=== PATIENT | male | born 1960 | race Caucasian/White ===

== ENCOUNTER 2021-01-04 08:55 | Outpatient (REF) | payer OTHER, SELFPAY ==
[2021-01-04 09:44] LABS: MANUAL DIFF FLAG NO
[2021-01-04 09:57] LABS: Basophils Percent Auto 0.7 % (0-2); Eosinophils Absolute Auto 0.4 X10*3/uL (0.0-0.4); Eosinophils Percent Auto 6.1 % (0-4); Hemoglobin 15.6 g/dl (14.0-18.0); Imm Gran Abs Auto 0.01 X10*3/uL (0.00-0.03); Imm Gran Pct Auto 0.2 % (0.0-0.4); Lymphocytes Absolute Auto 1.7 X10*3/uL (1.2-4.9); Lymphocytes Percent Auto 28.8 % (20-40); Mean Corpuscular HGB Conc 33.9 g/dl (31.0-36.0); Mean Corpuscular Hemoglobin 29.9 pg (27.0-33.0); Mean Corpuscular Volume 88.3 fL (80-98); Monocytes Absolute Auto 0.5 X10*3/uL (0.1-1.2); Monocytes Percent Auto 8.4 % (2-11); Neutrophils Absolute Auto 3.2 X10*3/uL (2.0-8.3); Neutrophils Percent Auto 55.8 % (45-73); Platelet Count 215 X10*3/uL (160-400); Red Blood Count 5.21 X10*6/uL (4.60-5.80); Red Cell Distribution Width 13.4 % (11.0-16.0); White Blood Count 5.7 X10*3/uL (4.8-10.8)
[2021-01-04 10:21] LABS: Alanine Aminotransferase 33 U/L (0-40); Albumin Level 4.1 g/dL (3.5-5.0); Alkaline Phosphatase 79 U/L (39-117); Anion Gap 11 (12-20); Aspartate Amino Transferase 20 U/L (5-37); Bilirubin Total 0.5 mg/dL (0.0-1.0); Blood Urea Nitrogen 12 mg/dL (9-16); Calcium 9.3 mg/dL (8.4-10.2); Carbon Dioxide 28 mmol/L (22-29); Chloride 104 mmol/L (96-108); Estimated Glomerular Filt Rate > 60; Glucose Random 160 mg/dL (60-115); Potassium 4.4 mmol/L (3.3-5.1); Sodium 139 mmol/L (135-145); Total Protein 7.2 g/dL (6.5-8.0)
[2021-01-04 10:25] LABS: TSH reflex Free T4 33.75 uIU/mL (0.32-4.0)
[2021-01-04 10:51] LABS: SARS COV2 IgG Negative (Negative)
[2021-01-04 10:58] LABS: Free T4 (Free Thyroxine) 0.71 ng/dL (0.71-1.85)
[2021-01-09 20:45] LABS: Testosterone, Free 50.5 pg/mL (35.0-155.0); Testosterone, Total 234 ng/dL (250-1100)
== END 2021-01-04 08:56 | disposition home or self-care (01) ==
LOC: HO.LAB 08:55
PROVIDERS: PCP Family Medicine; Visit Provider Family Medicine
DX: Z00.00 Encounter for general adult medical examination without abnormal findings (principal); Z20.822 Contact with and (suspected) exposure to COVID-19; R53.83 Other fatigue
CPT/HCPCS: 36415; 80053; 84402; 84403; 84439; 84443; 85025; 86769

== ENCOUNTER 2021-02-09 09:53 | Outpatient (REF) | payer OTHER, SELFPAY ==
[2021-02-09 11:57] LABS: TSH reflex Free T4 4.49 uIU/mL (0.32-4.0)
[2021-02-09 12:37] LABS: Free T4 (Free Thyroxine) 0.95 ng/dL (0.71-1.85)
== END 2021-02-09 09:54 | disposition home or self-care (01) ==
LOC: HO.LAB 09:53
PROVIDERS: PCP Family Medicine; Visit Provider Family Medicine
DX: E03.9 Hypothyroidism, unspecified (principal)
CPT/HCPCS: 36415; 84439; 84443

== ENCOUNTER 2021-03-23 09:19 | Outpatient (REF) | payer OTHER, SELFPAY ==
[2021-03-23 10:48] LABS: Appearance Urine CLEAR; Color Urine YELLOW; Glucose Urine UA NEG (NEG); Leukocyte Esterase Urine NEG (NEG); Nitrite Urine NEG (NEG); Specific Gravity - Urine 1.025 (1.005-1.025); Urine Blood NEG (NEG); Urine Ketones NEG (NEG); Urine Protein NEG (NEG-TRACE)
[2021-03-23 11:03] LABS: Alanine Aminotransferase 32 U/L (0-40); Albumin Level 4.1 g/dL (3.5-5.0); Alkaline Phosphatase 81 U/L (39-117); Anion Gap 11 (12-20); Aspartate Amino Transferase 21 U/L (5-37); Bilirubin Total 0.8 mg/dL (0.0-1.0); Blood Urea Nitrogen 13 mg/dL (9-16); Calcium 9.5 mg/dL (8.4-10.2); Carbon Dioxide 27 mmol/L (22-29); Chloride 106 mmol/L (96-108); Estimated Glomerular Filt Rate > 60; Glucose Fasting 171 mg/dL (60-99); Potassium 4.6 mmol/L (3.3-5.1); Sodium 139 mmol/L (135-145); Total Protein 7.1 g/dL (6.5-8.0)
[2021-03-23 11:25] LABS: Free T4 (Free Thyroxine) 0.87 ng/dL (0.71-1.85); Thyroid Stimulating Hormone 3.55 uIU/mL (0.32-4.0)
[2021-03-25 04:12] LABS: Triiodothyronine T3 Total 112 ng/dL (76-181)
== END 2021-03-23 09:20 | disposition home or self-care (01) ==
LOC: HO.LAB 09:19
PROVIDERS: PCP Family Medicine; Visit Provider Family Medicine
DX: Z00.00 Encounter for general adult medical examination without abnormal findings (principal); E03.9 Hypothyroidism, unspecified
CPT/HCPCS: 36415; 80053; 81003; 84439; 84443; 84480

== ENCOUNTER 2021-05-14 08:51 | Outpatient (REF) | payer OTHER, SELFPAY ==
[2021-05-14 09:53] LABS: Alanine Aminotransferase 32 U/L (0-40); Albumin Level 3.9 g/dL (3.5-5.0); Alkaline Phosphatase 86 U/L (39-117); Anion Gap 12 (12-20); Aspartate Amino Transferase 18 U/L (5-37); Bilirubin Total 0.7 mg/dL (0.0-1.0); Blood Urea Nitrogen 14 mg/dL (9-16); Calcium 9.2 mg/dL (8.4-10.2); Carbon Dioxide 27 mmol/L (22-29); Chloride 104 mmol/L (96-108); Estimated Average Glucose 180 mg/dL; Estimated Glomerular Filt Rate > 60; Glucose Fasting 184 mg/dL (60-99); Hemoglobin A1c % 7.9 %; Potassium 4.5 mmol/L (3.3-5.1); Sodium 138 mmol/L (135-145); Total Protein 6.9 g/dL (6.5-8.0)
[2021-05-14 10:15] LABS: Appearance Urine HAZY; Color Urine YELLOW; Glucose Urine UA 100 MG/DL (NEG); Leukocyte Esterase Urine NEG (NEG); Nitrite Urine NEG (NEG); PH 5.5 (5.0-8.0); Specific Gravity - Urine >= 1.030 (1.005-1.025); Urine Blood NEG (NEG); Urine Ketones NEG (NEG); Urine Protein NEG (NEG-TRACE)
[2021-05-14 10:16] LABS: TSH reflex Free T4 0.35 uIU/mL (0.32-4.0)
== END 2021-05-14 08:52 | disposition home or self-care (01) ==
LOC: HO.LAB 08:51
PROVIDERS: PCP Family Medicine; Visit Provider Family Medicine
DX: Z00.00 Encounter for general adult medical examination without abnormal findings (principal); E03.9 Hypothyroidism, unspecified; R73.01 Impaired fasting glucose
CPT/HCPCS: 36415; 80053; 81003; 83036; 84443

== ENCOUNTER → 2021-05-18 08:05 | Outpatient (BNVA) | payer OTHER, SELFPAY | PROVIDERS: PCP Family Medicine; Referring Provider Family Medicine; Visit Provider Nurse Practitioner Family | DX: G47.19 Other hypersomnia (principal); G47.9 Sleep disorder, unspecified; R06.83 Snoring | CPT/HCPCS: 99202 ==

== ENCOUNTER 2021-10-14 13:57 | Outpatient (REF) | payer OTHER, SELFPAY ==
[2021-10-14 14:43] LABS: Influenza A PCR NEGATIVE (Negative); Influenza B PCR NEGATIVE (Negative); Resp Syncy Virus RNA Qual PCR NEGATIVE (Negative); SARS COV2 PCR INHOUSE NEGATIVE (Negative)
== END 2021-10-14 13:58 | disposition home or self-care (01) ==
LOC: HO.LNP 13:57
PROVIDERS: Visit Provider Family Medicine
DX: Z20.822 Contact with and (suspected) exposure to COVID-19 (principal); R09.89 Other specified symptoms and signs involving the circulatory and respiratory systems
CPT/HCPCS: 0241U

== ENCOUNTER 2022-08-16 10:32 | Outpatient (REF) | payer OTHER, SELFPAY ==
[2022-08-16 14:07] LABS: Appearance Urine Clear; Color Urine Yellow; Glucose Urine UA Negative (Negative); Leukocyte Esterase Urine Negative (Negative); Nitrite Urine Negative (Negative); Urine Blood Negative (Negative); Urine Ketones Negative (Negative); Urine Protein Negative (Neg-Trace)
[2022-08-16 14:29] LABS: Estimated Average Glucose 151 mg/dL; Hemoglobin A1c % 6.9 %
[2022-08-16 14:53] LABS: Alanine Aminotransferase 23 U/L (0-40); Albumin Level 4.2 g/dL (3.5-5.0); Alkaline Phosphatase 94 U/L (39-117); Anion Gap 15 (12-20); Aspartate Amino Transferase 16 U/L (5-37); Bilirubin Total 0.8 mg/dL (0.0-1.0); Blood Urea Nitrogen 15 mg/dL (9-16); Calcium 9.3 mg/dL (8.4-10.2); Carbon Dioxide 26 mmol/L (22-29); Chloride 104 mmol/L (96-108); Cholesterol 244 mg/dL; Estimated Glomerular Filt Rate > 60; Glucose Fasting 136 mg/dL (60-99); HDL Cholesterol 59 mg/dL; LDL Cholesterol Calculated 160 mg/dl; Potassium 4.5 mmol/L (3.3-5.1); Sodium 140 mmol/L (135-145); Total Protein 7.2 g/dL (6.5-8.0); Triglycerides 129 mg/dL
[2022-08-16 14:58] LABS: Creatinine Urine 131.17 mg/dL; Microalbum/Creatinine Ratio Ur 5.3 ug/mg cr
[2022-08-16 15:01] LABS: Free T4 (Free Thyroxine) 0.84 ng/dL (0.71-1.85); Prostate Specific Antigen Scr 0.72 ng/mL (<0.05-4.0); Thyroid Stimulating Hormone 3.59 uIU/mL (0.32-4.0)
[2022-08-18 11:54] LABS: Triiodothyronine T3 Total 115 ng/dL (76-181)
== END 2022-08-16 10:33 | disposition home or self-care (01) ==
LOC: HO.WFDLDS 10:32
PROVIDERS: Visit Provider Family Medicine
DX: Z00.00 Encounter for general adult medical examination without abnormal findings (principal); E03.9 Hypothyroidism, unspecified; I10 Essential (primary) hypertension; R73.01 Impaired fasting glucose; Z12.5 Encounter for screening for malignant neoplasm of prostate
CPT/HCPCS: 36415; 80053; 80061; 81003; 82043; 83036; 84153; 84439; 84443; 84480

== ENCOUNTER 2023-07-14 13:32 | Outpatient (AMB) | payer OTHER, SELFPAY ==
--- NOTE | 2023-07-14 13:38 | A.OFFPC_ITS ---
Vital Signs 07/14/23 13:39 Height 5 ft 9 in Weight 210 lb BMI 31.0 BP 128/76 Blood Pressure Location Lt brachial Position Sitting Pulse 67 Pulse Source Pulse Oximeter Pulse Oximetry (%) 97 Oxygen Delivery Method Room Air Intake Visit Reasons: f/u hypercholesterolemia and diabetes Intake Note: Patient is here to follow up on hypercholesterolemia and diabetes. Patient is concerned of left sided pain in chest after injury, heavy object fell on him. Allergies No Known Allergies Allergy (Verified 07/14/23 13:41) Tobacco use date assessed: 07/14/23 Fall risk assessment: No Falls in past year Last assessed Fall Risk: 07/14/23 Dental Screening Dental Screen Date: 07/14/23 Did you have a dental visit in the last 12 months?: Yes Did you have a dental problem in the last 6 months where you did not have access to dental care?: No Was dental information given to patient?: Patient has dentist HPI f/u hypercholesterolemia and diabetes HPI Details Patient?presents?for?follow-up?hypertension?and?diabetes Blood?pressure?is?128/76?on?lisinopril A1c?significantly?climbed?to?8.3%.??He?is?prescribed?metformin?250?mg?b.i.d.?but ?often?forgets?to?take?his?medication. Also?has?complaints?of?bilateral?hand?pain ?at?the?hip?joints?and?also?in?the?palms?of?his?hands Patient?fell?off?a?step?stool?and?landed?on?his?back?on?a?chair?about?6?weeks?ag o.??More?recently?he?tried?to?lift?a?very?heavy?object?up?over?hi s?head?and?felt?a?popping?sensation?in?anterior?chest?wall. He?notes?some?fatigue.??He?is?on?levothyroxine?but?sometimes?forgets?his?medicat ion [facility] Surgical History History of left inguinal hernia repair Family History Father Dementia Mother Dementia Breast cancer Social History Housing: House Patient Tobacco Use Status: Never used Tobacco e-Cigarette/Vaping Use: Never Used Second Hand Smoke Exposure: No service: No Current occupational status: employed Current occupational exposures/hazards: No Cognitive needs: No Hearing needs: No Vision needs: No Questionnaire PHQ-9 Over the last 2 weeks, how often have you been bothered by any of the following problems? 1. Little interest or pleasure in doing things: not at all 2. Feeling down, depressed, or hopeless: not at all 3. Trouble falling or staying asleep, or sleeping too much: not at all 4. Feeling tired or having little energy: not at all 5. Poor appetite or overeating: not at all 6. Feeling bad about yourself - or that you are a failure or have let yourself or your family down: not at all 7. Trouble concentrating on things, such as reading the newspaper or watching television: not at all 8. Moving or speaking so slowly that other people could have noticed. Or the opposite - being so fidgety or restless that you have been moving around a lot more than usual: not at all 9. Thoughts that you would be better off or of hurting yourself in some way: not at all Total score: 0 Depression Screening Interpretation: Negative Depression Screening Done: Yes Source: Developed by Drs. Alfonso Green, Zulay Brennan, Lobo Martinez and colleagues, with an educational tu from [employer]. Thrive Questionnaire Date Thrive assessed: 07/14/23 I am a: Patient What is your living situation today?: I have a steady place to live Within the past 12 months, did the food you bought not last and you didn't have the money to get more?: Never true Within the past 12 months, did you worry whether your food would run out before you got money to buy more?: Never true Do you have trouble paying for medicines?: No Do you have trouble getting transportation to medical appointments?: No Do you have trouble paying your heating and electricity bill?: No Do you have trouble taking care of your child, family member or friend?: No Do you have trouble with day-to-day activities such as bathing, preparing meals, shopping, managing finances, etc.?: No Are you currently unemployed and looking for a job?: No Are you interested in more education?: No THRIVE Score: 0 AUDIT C Alcohol Use Questionnaire (AUDIT-C) 1. How often do you have a drink containing alcohol?: Never 3. How often do you have six or more drinks on one occasion?: Never Total Score: 0 DARLENE-7 AMB Questionnaire DARLENE-7 Date DARLENE - 7 assessed: 07/14/23 Feeling nervous, anxious, or on edge: 0 = Not at all Not being able to stop or control worryin = Not at all Worrying too much about different things: 0 = Not at all Trouble relaxin = Not at all Being so restless that it is hard to sit still: 0 = Not at all Becoming easily annoyed or irritable: 0 = Not at all Feeling afraid as if something awful might happen: 0 = Not at all Total DARLENE-7 score (0-4 normal; 5-9 mild; 10-14 moderate; 15-21 severe): 0 Source: Developed by Drs. Alfonso Green, uZlay Brennan, Lobo Martinez and colleagues, with an educational tu from [employer]. Review of Systems Const Details: CONSTITUTIONAL no fever. + fatigue. no chills. Chest: ?Patient?points?to?focal?tenderness?at?left?anterior?ribs CARDIOVASCULAR no chest pain. no palpitations. RESPIRATORY no cough. no shortness of breath. no trouble breathing. no wheezing. PSYCHIATRIC no anxiety. no depression. EXTREMITIES: ?Pain?in?bilateral?hands NEUROLOGIC no incoordination. no headache. no weakness. no dizziness. no gait abnormality. Physical exam (Primary Care) Vital Signs: Last Vital Signs Pulse 67 07/14/23 13:39 BP 128/76 07/14/23 13:39 Pulse Ox 97 07/14/23 13:39 Oxygen Delivery Method Room Air 07/14/23 13:39 BMI result Body Mass Index 31.0 Tobacco/Smoking Status: Tobacco use Status Tobacco use date assessed 07/14/23 07/14/23 13:50 Patient Tobacco Use Status Never used Tobacco 07/14/23 13:39 e-Cigarette/Vaping Use Never Used 07/14/23 13:39 PHQ-9: PHQ-9 Score PHQ-9: Total score 0 07/14/23 13:50 Depression Screening Interpretation: Negative Thrive Assessment: Date of Thrive Assessment Date Thrive assessed 07/14/23 07/14/23 13:50 Const Other: General Appearance: no apparent distress, pleasant. Chest: ?Mild?tenderness?at?anterior?chest?wall?on?the?left Heart: RRR, no murmurs, clicks or rubs, no gallops. Lungs: clear to auscultation. Extremities: no edema. ?Bilateral?hand?pain?at?hip?joints?and?prominence?of?flexor?tendons?with?m ild?tenderness. Neurologic Exam: alert and oriented x3, gait normal, Psych: Normal affect Results AMB Hemoglobin A1c AMB Hemoglobin A1c 8.3 % Last Edit by Ana Xie CMA on 07/14/23 14:41 AMB Hemoglobin A1c previously reported as 8.5 Ana Xie 07/14/23 14:41 Results Reviewed Results Reviewed: Laboratory Last Values Hgb A1c (Clinic) 8.5 % (4.0-6.0) H 07/14/23 14:12 Assessment and Plan Assessment & Plan (1) Bilateral hand pain: Code(s): M79.641 - Pain in right hand; M79.642 - Pain in left hand Plan: Bilateral?hand?pain?particularly?in?flexor?tendon?sheaths?and?also?pip?joints. Check?inflammatory?marker Try?naproxen (2) Chest wall pain: Code(s): R07.89 - Other chest pain Plan: Fall?onto?back?while?on?stepping?stool Also?pain/popping?sensation?in?anterior?chest/ribs?with?heavy?lifting. Check?chest?x-ray?and?left?rib?films (3) Diabetes mellitus: Code(s): E11.9 - Type 2 diabetes mellitus without complications Plan: A1c?significantly?increased. Metformin?bothers?his?stomach?though?he?is?not?very?consistent?with?a Continue?metformin?as?prescribed Will?give?him?a?script?for?glipizide (4) Essential hypertension: Code(s): I10 - Essential (primary) hypertension Plan: Blood?pressure?is?controlled?on?lisinopril Continue?lisinopril (5) Fatigue: Code(s): R53.83 - Other fatigue Plan: Not?always?consistent?with?levothyroxine Also?blood?sugars?are?high He?is?due?for?an?upcoming?physical.??Checking?thyroid?hormone?levels?as?well?as? other?labs?to?work?this?up. Orders: Orders AMB Hemoglobin A1c Today Z13.9 - Encounter for screening, unspecified Comprehensive [place]. Panel Fast Today R53.83 - Other fatigue, Z00.00 - Encounter for general adult medical examination without abnormal findings Lipid Panel Today E11.9 - Type 2 diabetes mellitus without complications, Z00.00 - Encounter for general adult medical examination without abnormal findings Vitamin D 25-OH Total Today E11.9 - Type 2 diabetes mellitus without complications, E55.9 - Vitamin D deficiency, unspecified Erythrocyte Sedimentation Rate Today M79.641 - Pain in right hand, M79.642 - Pain in left hand CRP High Sensitivity Today M79.641 - Pain in right hand, M79.642 - Pain in left hand Testosterone, Free/Total Today R53.83 - Other fatigue Triiodothyronine T3 Total Today E03.9 - Hypothyroidism, unspecified Thyroid Stimulating Hormone Today E03.9 - Hypothyroidism, unspecified Free T4 (Free Thyroxine) Today E03.9 - Hypothyroidism, unspecified Complete Blood Count Auto Diff Today R53.83 - Other fatigue, Z00.00 - Encounter for general adult medical examination without abnormal findings Microalbumin, Random (w Creat) Today E11.9 - Type 2 diabetes mellitus without complications, I10 - Essential (primary) hypertension XR chest 2V Today R07.89 - Other chest pain XR ribs LT 2V Today R07.89 - Other chest pain Medications: New glipizide ER 2.5 mg PO QAM 30 tabs 2RF 30 days naproxen 500 mg PO BID PRN 60 tabs 3RF pain 30 days Coding Level of Care Code Est Pt Level 4 (29579) Diagnoses Bilateral hand pain M79.641; M79.642 Chest wall pain R07.89 Diabetes mellitus E11.9 Essential hypertension I10 Fatigue R53.83
[2023-07-14 13:39] VITALS: BP 128/76; PULSE 67; O2SAT 97; BMI 31.0
== END 2023-07-14 14:57 | disposition home or self-care (01) ==
PROVIDERS: PCP Family Medicine; Visit Provider Family Medicine
DX: M79.641 Pain in right hand (principal); E11.9 Type 2 diabetes mellitus without complications; M79.642 Pain in left hand; R07.89 Other chest pain; I10 Essential (primary) hypertension; R53.83 Other fatigue
CPT/HCPCS: 83036; 99214

== ENCOUNTER 2023-07-26 09:35 | Outpatient (REF) | payer OTHER, SELFPAY ==
--- NOTE | ~2023-07-26 | XR_ITS ---
EXAMINATION: XR CHEST XR LEFT RIBS CLINICAL INFORMATION: Chest pain COMPARISON: None TECHNIQUE: Chest, PA and lateral views Left ribs, 3 views FINDINGS: CHEST Lungs are well-inflated and clear. Trachea is midline in position. No interstitial disease, consolidation or mass. No pleural effusion or pneumothorax. Cardiac silhouette and pulmonary vessels are normal in size. The mediastinum and ascencion have normal contour. The visualized bones and upper abdomen are unremarkable. RIBS The left sided ribs have an intact base. No fractures are seen. No focal lytic or blastic lesion. XR/XR ribs LT 2V IMPRESSION: * Lungs have a normal appearance. No acute cardiopulmonary abnormality. * No evidence of rib fracture.
--- NOTE | ~2023-07-26 | XR_ITS ---
EXAMINATION: XR CHEST XR LEFT RIBS CLINICAL INFORMATION: Chest pain COMPARISON: None TECHNIQUE: Chest, PA and lateral views Left ribs, 3 views FINDINGS: CHEST Lungs are well-inflated and clear. Trachea is midline in position. No interstitial disease, consolidation or mass. No pleural effusion or pneumothorax. Cardiac silhouette and pulmonary vessels are normal in size. The mediastinum and ascencion have normal contour. The visualized bones and upper abdomen are unremarkable. RIBS The left sided ribs have an intact base. No fractures are seen. No focal lytic or blastic lesion. XR/XR chest 2V IMPRESSION: * Lungs have a normal appearance. No acute cardiopulmonary abnormality. * No evidence of rib fracture.
[2023-07-26 09:55] LABS: MANUAL DIFF FLAG NO
[2023-07-26 10:26] LABS: Basophils Percent Auto 0.4 % (0-2); Eosinophils Absolute Auto 0.4 X10*3/uL (0.0-0.4); Hemoglobin 15.5 g/dl (14.0-18.0); Imm Gran Abs Auto 0.02 X10*3/uL (0.00-0.03); Imm Gran Pct Auto 0.4 % (0.0-0.4); Lymphocytes Absolute Auto 1.4 X10*3/uL (1.2-4.9); Lymphocytes Percent Auto 28.6 % (20-40); Mean Corpuscular HGB Conc 33.7 g/dl (31.0-36.0); Mean Corpuscular Hemoglobin 29.4 pg (27.0-33.0); Mean Corpuscular Volume 87.3 fL (80.0-98.0); Mean Platelet Volume 9.8 fL (9.4-12.4); Monocytes Absolute Auto 0.4 X10*3/uL (0.1-1.2); Monocytes Percent Auto 7.6 % (2-11); Neutrophils Absolute Auto 2.7 x10*3/uL (2.0-8.3); Platelet Count 204 X10*3/uL (160-400); Red Blood Count 5.27 X10*6/uL (4.60-5.80); Red Cell Distribution Width 13.8 % (11.0-16.0); White Blood Count 4.9 X10*3/uL (4.8-10.8)
[2023-07-26 11:12] LABS: Creatinine Urine 136.92 mg/dL; Microalbum/Creatinine Ratio Ur 4.3 ug/mg cr (<30)
[2023-07-26 11:15] LABS: Alanine Aminotransferase 28 U/L (0-40); Alkaline Phosphatase 73 U/L (39-117); Anion Gap 11 (12-20); Aspartate Amino Transferase 17 U/L (5-37); Bilirubin Total 0.6 mg/dL (0.0-1.0); Blood Urea Nitrogen 17 mg/dL (9-16); Calcium 9.2 mg/dL (8.4-10.2); Carbon Dioxide 27 mmol/L (22-29); Chloride 105 mmol/L (96-108); Cholesterol 210 mg/dL (<200); Estimated Glomerular Filt Rate > 60; Glucose Fasting 145 mg/dL (60-99); HDL Cholesterol 52 mg/dL (>40); LDL Cholesterol Calculated 137 mg/dL (<100); Potassium 4.3 mmol/L (3.3-5.1); Sodium 139 mmol/L (135-145); Total Protein 7.1 g/dL (6.5-8.0); Triglycerides 106 mg/dL (<150)
[2023-07-26 11:16] LABS: Erythrocyte Sedimentation Rate 3 MM/HR (0-15); Free T4 (Free Thyroxine) 1.01 ng/dL (0.71-1.85); Thyroid Stimulating Hormone 3.35 uIU/mL (0.32-4.0); Vitamin D 25-OH Total 19.4 ng/mL (>30)
[2023-07-26 12:06] LABS: Estimated Average Glucose 174 mg/dL; Hemoglobin A1c % 7.7 % (<6.0)
[2023-07-27 19:39] LABS: Triiodothyronine T3 Total 102 ng/dL (76-181)
[2023-07-27 23:03] LABS: CRP High Sensitivity 0.7 mg/L
[2023-08-02 11:08] LABS: Testosterone, Free 76.8 pg/mL (35.0-155.0); Testosterone, Total 327 ng/dL (250-1100)
== END 2023-07-26 09:36 | disposition home or self-care (01) ==
LOC: HO.XRAY 09:35
PROVIDERS: PCP Family Medicine; Visit Provider Family Medicine
DX: Z00.00 Encounter for general adult medical examination without abnormal findings (principal); E78.00 Pure hypercholesterolemia, unspecified; E11.9 Type 2 diabetes mellitus without complications; R07.89 Other chest pain; E55.9 Vitamin D deficiency, unspecified; E03.9 Hypothyroidism, unspecified; R53.83 Other fatigue; I10 Essential (primary) hypertension; M79.641 Pain in right hand; M79.642 Pain in left hand
CPT/HCPCS: 36415; 71046; 71100; 80053; 80061; 82043; 82306; 82570; 83036; 84402; 84403; 84439; 84443; 84480; 85025; 85652; 86141

== ENCOUNTER 2023-09-21 11:20 | Outpatient (AMB) | payer OTHER, SELFPAY ==
[2023-09-21 11:37] VITALS: BP 140/82; PULSE 69; O2SAT 98; BMI 31.5
--- NOTE | 2023-09-21 11:37 | MHC.PC.OV ---
Vital Signs 09/21/23 11:37 Height 5 ft 9 in Weight 213 lb BMI 31.5 BP 140/82 H Blood Pressure Location Lt brachial Position Sitting Pulse 69 Pulse Source Pulse Oximeter Pulse Oximetry (%) 98 Oxygen Delivery Method Room Air Intake Visit Reasons: arm pain Intake Note: Patient is here with left arm pain today. Hurts to raise his arm, put his seat belt on, and trouble sleeping with it. Allergies No Known Allergies Allergy (Verified 09/21/23 11:42) Tobacco use date assessed: 09/21/23 Fall risk assessment: 1 Fall in past year Last assessed Fall Risk: 09/21/23 Dental Screening Dental Screen Date: 09/21/23 Did you have a dental visit in the last 12 months?: Yes Did you have a dental problem in the last 6 months where you did not have access to dental care?: No Was dental information given to patient?: Patient has dentist HPI arm pain HPI Details 63 y/o male presents today with complaints of arm pain/L shoulder pain. Labs were drawn 07/26/23. Reviewed labs with pt. A1c 7.7%. Pt is on glipizide 2.5mg and metformin 250mg b.i.d. TC 210. LDL 137. HDL 52. Vitamin D low at 19.4. Pt notes L shoulder pain and difficulty raising his arm/putting his seat belt on. Does have pain with internal rotation. Has been using naproxen for the pain. PENDING SALE TO [facility] Surgical History History of left inguinal hernia repair Family History Father Dementia Mother Dementia Breast cancer Social History Housing: House Patient Tobacco Use Status: Never used Tobacco e-Cigarette/Vaping Use: Never Used Second Hand Smoke Exposure: No service: No Current occupational status: employed Current occupational exposures/hazards: No Cognitive needs: No Hearing needs: No Vision needs: No Questionnaire Thrive Questionnaire Date Thrive assessed: 07/14/23 DARLENE-7 AMB Questionnaire DARLENE-7 Date DARLENE - 7 assessed: 07/14/23 Source: Developed by Drs. Alfonso Green, Zulay Brennan, Lobo Martinez and colleagues, with an educational tu from [employer]. Review of Systems Const Denies chills, Denies fatigue, Denies fever(s), Denies headache(s) and Denies weakness ENT Denies dizziness and Denies headache(s) Card Denies dyspnea Resp Denies cough, Denies dyspnea, Denies wheezing and Denies other (shortness of breath) Musc Details: L shoulder pain Denies numbness and Denies tingling Neuro Denies dizziness, Denies headache(s), Denies numbness, Denies tingling and Denies weakness Psych Denies anxiety and Denies depression Endo Denies fatigue Aller/Immun Denies wheezing Physical exam (Primary Care) Vital Signs: Last Vital Signs Pulse 69 09/21/23 11:37 BP 140/82 H 09/21/23 11:37 Pulse Ox 98 09/21/23 11:37 Oxygen Delivery Method Room Air 09/21/23 11:37 BMI result Body Mass Index 31.5 Tobacco/Smoking Status: Tobacco use Status Tobacco use date assessed 09/21/23 09/21/23 11:45 Patient Tobacco Use Status Never used Tobacco 09/21/23 11:45 e-Cigarette/Vaping Use Never Used 09/21/23 11:45 Thrive Assessment: Date of Thrive Assessment Date Thrive assessed 07/14/23 09/21/23 11:45 Const General: well developed; No acute distress Nutritional Appearance: well nourished Orientation/consciousness: patient oriented x3 HENMT Head: Yes normocephalic and Yes atraumatic Eyes General: appearance normal, both eyes and all related structures Pupils: Equal, round and reactive pupils present EOM: EOMs intact bilaterally Resp Effort & Inspection: normal respiratory effort Neuro General: patient oriented x3 and gait normal Cranial nerves: Yes Equal, round and reactive pupils present Psych Affect: normal affect Assessment and Plan Assessment & Plan (1) Left shoulder pain: Code(s): M25.512 - Pain in left shoulder Plan: Left?shoulder?pain?and?likely?mild?rotator?cuff?strain?with?repetitive?injury. Check?x-ray Start?physical?therapy Naproxen Ice/heat If?not?improving?will?refer?to?ortho (2) Arm pain: Code(s): M79.603 - Pain in arm, unspecified Plan: As?above (3) Hypercholesterolemia: Code(s): E78.00 - Pure hypercholesterolemia, unspecified Plan: LDL?cholesterol?is?too?high.??Goal?is?less?than?100?for?patient?with?diabetes Start?atorvastatin Will?recheck?lipids?prior?to?next?visit (4) Diabetes mellitus: Code(s): E11.9 - Type 2 diabetes mellitus without complications Plan: A1c?improved?slightly?from?8.3%?to?7.7%?but?still?above?goal?of?less?than?7.0% Encouraged?diabetic?diet Continue?metformin Increased?glipizide?ER?2.5?mg?daily?to?5?mg?daily (5) Low vitamin D level: Code(s): R79.89 - Other specified abnormal findings of blood chemistry Plan: Mild Will?recheck?with?next?set?of?labs Orders: Orders PT Evaluation and Treatment Today M25.512 - Pain in left shoulder, M79.603 - Pain in arm, unspecified Comprehensive [place]. Panel Fast Today E78.00 - Pure hypercholesterolemia, unspecified, Z00.00 - Encounter for general adult medical examination without abnormal findings Vitamin D 25-OH Total Today E55.9 - Vitamin D deficiency, unspecified, R79.89 - Other specified abnormal findings of blood chemistry XR shoulder LT min 2V Today M25.512 - Pain in left shoulder, M79.603 - Pain in arm, unspecified Lipid Panel Today E78.00 - Pure hypercholesterolemia, unspecified, Z00.00 - Encounter for general adult medical examination without abnormal findings Medications: New atorvastatin 20 mg PO DAILY 90 days 90 tabs 2RF Changed From glipizide ER 2.5 mg PO QAM 30 days 30 tabs 2RF To glipizide ER 5 mg PO QAM 30 days 30 tabs 2RF Coding Level of Care Code Est Pt Level 4 (91711) Diagnoses Left shoulder pain M25.512 Arm pain M79.603 Hypercholesterolemia E78.00 Diabetes mellitus E11.9 Low vitamin D level R79.89
== END 2023-09-21 12:44 | disposition home or self-care (01) ==
PROVIDERS: PCP Family Medicine; Visit Provider Family Medicine
DX: E11.9 Type 2 diabetes mellitus without complications (principal); M25.512 Pain in left shoulder; M79.602 Pain in left arm; E78.00 Pure hypercholesterolemia, unspecified; R79.89 Other specified abnormal findings of blood chemistry
CPT/HCPCS: 99214

== ENCOUNTER 2023-09-27 13:59 | Outpatient (REF) | payer OTHER, SELFPAY ==
--- NOTE | ~2023-09-27 | XR_ITS ---
EXAMINATION: XR SHOULDER, LEFT CLINICAL INFORMATION: Pain in arm, unspecified. Patient states pain in left shoulder. COMPARISON: None available. TECHNIQUE: AP external rotation, Grashey, scapular Y, and axillary views of the left shoulder. FINDINGS: The bones and soft tissues are normal. No fracture. Glenohumeral and acromioclavicular alignment is anatomic with normal joint space. No abnormal soft tissue calcifications. XR/XR shoulder LT min 2V IMPRESSION: Normal left shoulder.
== END 2023-09-27 14:00 | disposition home or self-care (01) ==
LOC: HO.XRAY 13:59
PROVIDERS: PCP Family Medicine; Visit Provider Family Medicine
DX: M25.512 Pain in left shoulder (principal); M79.602 Pain in left arm
CPT/HCPCS: 73030

== ENCOUNTER 2023-12-14 09:01 | Outpatient (AMB) | payer OTHER, SELFPAY ==
[2023-12-14 09:18] VITALS: BMI 31.5
--- NOTE | 2023-12-14 09:18 | MHC.OFFVIS ---
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 Patient reports pain has been present for about 6 months. He states while cleaning his garage, lifting an 100lb item above his head he heard a crack. He describes his pain as a constant dull ache located at the deltoid region. Limited ROM. Discomfort with laying on his left side. Denies numbness or tingling. No previous tx. Finds temporary relief with taking naproxen and aspirin. 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 He reports he was cleaning his garage lifting an 100lbs item above his head when he heard a ?crack? and experienced pain. He currently states he has limited ROM and constant dull ache at the deltoid of his shoulder that is aggravated with laying on his sides, lifting and overhead reaching. He rates the pain as 7 on the scale of 0-10. He denies any numbness or tingling. He finds transient relief with naproxen and aspirin. He has not had any treatment in the past. His job involves a lot of overhead reaching and reaching. [facility] Surgical History History of left inguinal hernia repair Family History Father Dementia Mother Dementia Breast cancer Social History Housing: House Patient Tobacco Use Status: Never used Tobacco e-Cigarette/Vaping Use: Never Used Second Hand Smoke Exposure: No service: No Current occupational status: employed Current occupational exposures/hazards: No Cognitive needs: No Hearing needs: No Vision needs: No Review of Systems Const All systems reviewed & are unremarkable except as noted in HPI and below Physical Exam Vital Signs: BMI result Body Mass Index 31.5 Const General: cooperative, healthy appearing, comfortable, no acute distress, well developed and alert Orientation/consciousness: patient oriented x3 HEENT Head: Yes normal to inspection, Yes normocephalic and Yes atraumatic Eyes General: appearance normal, both eyes and all related structures Resp Effort & Inspection: normal respiratory effort and able to speak in complete sentences Cardio Rate: regular rate Peripheral pulses: Peripheral pulses 2+ throughout GI Palpation (GI): Soft to palpation Skin Lesions: no lesions Rashes: no rashes Neuro General: patient oriented x3 Extrem Other: Left shoulder: Normal to inspection. Tenderness over the bicipital groove and along the deltoid region of the shoulder. Forward flexion to 175, external rotation to 90, internal rotation to S1. Significant pain and some compensation with RTC on the left when compared to the contralateral side. Positive Aranda. NVI. Results Reviewed Results Reviewed: XR shoulder LT min 2V IMPRESSION: Normal left shoulder. Assessment & Plan Assessment & Plan (1) Left shoulder tendonitis: Code(s): M77.8 - Other enthesopathies, not elsewhere classified Category: Medical Plan We discussed options today which include physical therapy, cortisone injection and MRI imaging. He will hold off on injection today. I did give him a course of physical therapy to work on ROM and RTC strengthening. An MRI of the left shoulder was also ordered to further evaluate the integrity of RTC. Once the scan is complete, I will see him back to determine next step in his treatment which involves an appointment with Dr. Harrington to discuss further planning. Orders: Orders PT Evaluation and Treatment Today M77.8 - Other enthesopathies, not elsewhere classified MR shoulder LT wo con Today S46.009A - Unspecified injury of muscle(s) and tendon(s) of the rotator cuff of unspecified shoulder, initial encounter Patient Instructions: Scribed for Jung Carter PA-C, by Jackson Hsu emergency medical tech, on 12/14/2023 at 9:15 AM EST.? Jung Tom PA-C, have personally reviewed and agree with the information entered by the scribe. Coding Level of Care Code New Pt Level 3 (61306) Diagnoses Left shoulder tendonitis M77.8
== END 2023-12-14 10:53 | disposition home or self-care (01) ==
PROVIDERS: PCP Family Medicine; Visit Provider Physician Assistant
DX: M77.8 Other enthesopathies, not elsewhere classified (principal)
CPT/HCPCS: 99203

== ENCOUNTER → 2023-12-14 09:01 | Outpatient (BNVA) | payer OTHER, SELFPAY | PROVIDERS: PCP Family Medicine; Visit Provider Physician Assistant | DX: S46.002A Unspecified injury of muscle(s) and tendon(s) of the rotator cuff of left shoulder, initial encounter (principal); M77.8 Other enthesopathies, not elsewhere classified; X50.0XXA Overexertion from strenuous movement or load, initial encounter; X50.9XXA Other and unspecified overexertion or strenuous movements or postures, initial encounter; Y93.9 Activity, unspecified; Y92.9 Unspecified place or not applicable; Y99.9 Unspecified external cause status | CPT/HCPCS: 99202 ==

== ENCOUNTER 2024-02-09 08:28 | Outpatient (REF) | payer OTHER, SELFPAY ==
--- NOTE | ~2024-02-09 | XR_ITS ---
EXAMINATION: Radiographic orbits CLINICAL INDICATION: Pre-MRI screening. COMPARISON: Evaluation of metal foreign bodies. TECHNIQUE: 3 view of the orbits. FINDINGS: No unexpected radiopaque foreign bodies. No osseous abnormalities demonstrated. XR/XR pre mri screening IMPRESSION: No unexpected radiopaque foreign bodies. Electronically signed by: Ariela aLzar MD 02/09/2024 09:13 AM EDT
== END 2024-02-09 08:29 | disposition home or self-care (01) ==
LOC: HO.MRI 08:28
PROVIDERS: PCP Family Medicine; Visit Provider Physician Assistant
DX: Z13.89 Encounter for screening for other disorder (principal)

== ENCOUNTER 2024-10-22 11:52 | Outpatient (AMB) | payer MEDICARE, SELFPAY ==
--- NOTE | 2024-10-22 12:18 | MHC.PC.OV ---
Vital Signs 10/22/24 12:31 10/22/24 12:32 Height 5 ft 9 in Weight 207 lb 4 oz BMI 30.6 BP 142/80 H 138/74 Blood Pressure Location Rt brachial Rt brachial Position Sitting Sitting Respiration 16 Pulse 65 Pulse Source Pulse Oximeter Temp 98.0 F Temp Source Oral Pulse Oximetry (%) 96 Oxygen Delivery Method Room Air Intake Visit Reasons: MED REVIEW Intake Note: Patient is scheduled to review medications with pcp Commodities Requirements Analyst Required: No Allergies No Known Allergies Allergy (Verified 10/22/24 12:18) Tobacco use date assessed: 09/21/23 Dental Screening Dental Screen Date: 09/21/23 HPI MED REVIEW HPI Details 64 y/o male presents to f/u diabetes, HLD, chronic conditions. Prior A1c 07/26/23 7.7%. He is on glipizide 5mg, metformin 250mg b.i.d. A1c today 10/22/24 is 7.5%. He notes he is only taking glipizide. No recent labs to review. Blood pressure today 138/74, 65p. He is on lisinopril 20mg daily. [facility] Surgical History History of left inguinal hernia repair Family History Father Dementia Mother Dementia Breast cancer Social History Housing: House Patient Tobacco Use Status: Never used Tobacco e-Cigarette/Vaping Use: Never Used Second Hand Smoke Exposure: No service: No Current occupational status: employed Current occupational exposures/hazards: No Cognitive needs: No Hearing needs: No Vision needs: No Questionnaire PHQ-9 Over the last 2 weeks, how often have you been bothered by any of the following problems? 1. Little interest or pleasure in doing things: several days 2. Feeling down, depressed, or hopeless: not at all 3. Trouble falling or staying asleep, or sleeping too much: several days 4. Feeling tired or having little energy: more than half the days 5. Poor appetite or overeating: not at all 6. Feeling bad about yourself - or that you are a failure or have let yourself or your family down: not at all 7. Trouble concentrating on things, such as reading the newspaper or watching television: not at all 8. Moving or speaking so slowly that other people could have noticed. Or the opposite - being so fidgety or restless that you have been moving around a lot more than usual: not at all 9. Thoughts that you would be better off or of hurting yourself in some way: not at all Total score: 4 Source: Developed by Drs. Alfonso Green, Zulay Brennan, Loob Martinez and colleagues, with an educational tu from [employer]. Thrive Questionnaire Date Thrive assessed: 07/14/23 I am a: Patient What is your living situation today?: I have a steady place to live Within the past 12 months, did the food you bought not last and you didn't have the money to get more?: Never true Within the past 12 months, did you worry whether your food would run out before you got money to buy more?: Never true Do you have trouble paying for medicines?: No Do you have trouble getting transportation to medical appointments?: No Do you have trouble paying your heating and electricity bill?: No Do you have trouble taking care of your child, family member or friend?: No Do you have trouble with day-to-day activities such as bathing, preparing meals, shopping, managing finances, etc.?: No Are you currently unemployed and looking for a job?: No Are you interested in more education?: No Please select the resources that you would like help with: Paying for medicine Currently or been in a relationship where the following occur: No concerns reported THRIVE Score: 0 AUDIT C Alcohol Use Questionnaire (AUDIT-C) 1. How often do you have a drink containing alcohol?: Never Total Score: 0 DARLENE-7 AMB Questionnaire DARLENE-7 Date DARLENE - 7 assessed: 07/14/23 Feeling nervous, anxious, or on edge: 1 = Several days Not being able to stop or control worryin = Several days Worrying too much about different things: 1 = Several days Trouble relaxin = Several days Being so restless that it is hard to sit still: 1 = Several days Becoming easily annoyed or irritable: 1 = Several days Feeling afraid as if something awful might happen: 0 = Not at all Total DARLENE-7 score (0-4 normal; 5-9 mild; 10-14 moderate; 15-21 severe): 6 Source: Developed by Drs. Alfonso Green, Zulay Brennan, Lobo Martinez and colleagues, with an educational tu from [employer]. Review of Systems Const Denies chills, Denies fatigue, Denies fever(s), Denies headache(s) and Denies weakness ENT Denies dizziness and Denies headache(s) Card Denies dyspnea Resp Denies cough, Denies dyspnea, Denies wheezing and Denies other (shortness of breath) Musc Denies numbness and Denies tingling Neuro Denies dizziness, Denies headache(s), Denies numbness, Denies tingling and Denies weakness Psych Denies anxiety and Denies depression Endo Denies fatigue Aller/Immun Denies wheezing Physical exam (Primary Care) Vital Signs: Last Vital Signs Temp 98.0 F 10/22/24 12:31 Pulse 65 10/22/24 12:31 Resp 16 10/22/24 12:31 BP 138/74 10/22/24 12:32 Pulse Ox 96 10/22/24 12:31 Oxygen Delivery Method Room Air 10/22/24 12:31 BMI result Body Mass Index 30.6 Tobacco/Smoking Status: Tobacco use Status Tobacco use date assessed 09/21/23 10/22/24 12:34 Patient Tobacco Use Status Never used Tobacco 10/22/24 12:34 e-Cigarette/Vaping Use Never Used 10/22/24 12:34 PHQ-9: PHQ-9 Score PHQ-9: Total score 4 10/22/24 12:34 Thrive Assessment: Date of Thrive Assessment Date Thrive assessed 07/14/23 10/22/24 12:34 Currently or been in a relationship where the following occur: No concerns reported Const General: well developed; No acute distress Nutritional Appearance: well nourished Orientation/consciousness: patient oriented x3 HENMT Head: Yes normocephalic and Yes atraumatic Eyes General: appearance normal, both eyes and all related structures Pupils: Equal, round and reactive pupils present EOM: EOMs intact bilaterally Resp Effort & Inspection: normal respiratory effort Auscultation: clear to auscultation bilaterally Cardio Rate: regular rate Rhythm: regular rhythm Heart sounds: S1 normal heart sound present, S2 normal heart sound present, no gallops, no murmurs and no rubs Neuro General: patient oriented x3 and gait normal Cranial nerves: Yes Equal, round and reactive pupils present Psych Affect: normal affect Coding Level of Care Code Est Pt Level 4 (29638) Diagnoses Diabetes mellitus E11.9 Essential hypertension I10 Hypercholesterolemia E78.00 Hypothyroidism E03.9 Excessive daytime sleepiness G47.19 Assessment & Plan Assessment & Plan (1) Diabetes mellitus: Code(s): E11.9 - Type 2 diabetes mellitus without complications Category: Medical Plan: A1c?now?at?7.5%.??Goal?is?less?than?7.0% Poor?control. Has?been?taking?glipizide?but?has?been?off?metformin Refilled?glipizide?and?metformin?& encouraged?him?to?take?these?medications?consistently. (2) Essential hypertension: Code(s): I10 - Essential (primary) hypertension Category: Medical Plan: Blood?pressure?is?mildly?elevated?and?although?it?does?improve?with?relaxation,?patient?says?is?frequently?high?at?home Will?change?lisinopril?20?mg?daily?to Lisinopril-hydrochlorothiazide?20/12.5?mg?q.a.m. (3) Hypercholesterolemia: Code(s): E78.00 - Pure hypercholesterolemia, unspecified Category: Medical Plan: LDL?cholesterol?had?been?as?high?as?160 Had?started?him?on?atorvastatin?but?he?no?longer?has?this. Restart?atorvastatin Can?recheck?lipids?with?next?blood?draw (4) Hypothyroidism: Code(s): E03.9 - Hypothyroidism, unspecified Category: Medical Plan: Had?been?on?levothyroxine?125?mcg?daily?but?has?been?out?of?this?medication?due?to?no?insurance?no?recent Office?visits. Resume?levothyroxine?125?mcg?daily Recheck?thyroid?hormone?levels?in?about?2?months (5) Excessive daytime sleepiness: Code(s): G47.19 - Other hypersomnia Category: Medical Plan: Patient?had?been?referred?to?Sleep?Medicine?in?the?past?but?he?had?not?followed?through. Has?some?apneic?events?and?has?significant?daytime?sleepiness?and?fatigue. Referred?back?to?Sleep?Medicine?and?encouraged?him?to?follow?through.??Patient?agrees. Orders: Orders Thyroid Stimulating Hormone Today E03.9 - Hypothyroidism, unspecified Vitamin D 25-OH Total Today E55.9 - Vitamin D deficiency, unspecified, R79.89 - Other specified abnormal findings of blood chemistry Comprehensive Cody. Panel Fast Today Z00.00 - Encounter for general adult medical examination without abnormal findings Lipid Panel Today Z00.00 - Encounter for general adult medical examination without abnormal findings Microalbumin, Random (w Creat) Today I10 - Essential (primary) hypertension UA CC w/rflx Micro + Cult Today Z00.00 - Encounter for general adult medical examination without abnormal findings Free T4 (Free Thyroxine) Today E03.9 - Hypothyroidism, unspecified Triiodothyronine T3 Total Today E03.9 - Hypothyroidism, unspecified Prostate Specific Antigen Scr Today Z12.5 - Encounter for screening for malignant neoplasm of prostate Referrals Sleep Medicine Referral G47.30 - Sleep apnea, unspecified Medications: New lisinopril-hydrochlorothiazide 20-12.5 mg 1 tab PO QAM 90 days 90 tabs 3RF cholecalciferol (vitamin D3) 50 mcg PO DAILY 30 days 30 caps 3RF R79.89 - Other specified abnormal findings of blood chemistry Changed From metformin 250 mg (1/2 x 500 mg) PO BID 30 days 30 tabs 3RF To metformin 250 mg (1/2 x 500 mg) PO BID 90 days 90 tabs 3RF Refilled atorvastatin 20 mg PO DAILY 90 days 90 tabs 2RF glipizide ER 5 mg PO QAM 30 days 30 tabs 2RF levothyroxine 125 mcg PO DAILY 90 days 90 tabs 1RF naproxen 500 mg PO BID 30 days PRN 60 tabs 3RF pain Discontinued lisinopril Discontinued Reason: Doctor's Order 20 mg PO DAILY 90 days 90 tabs 3RF
[2024-10-22 12:31] VITALS: BP 142/80; PULSE 65; RESP 16; TEMP 36.7; O2SAT 96; BMI 30.6
[2024-10-22 12:32] VITALS: BP 138/74
== END 2024-10-22 13:25 | disposition home or self-care (01) ==
LOC: HO.HMCFM 11:53
PROVIDERS: PCP Family Medicine; Visit Provider Family Medicine
DX: E11.9 Type 2 diabetes mellitus without complications (principal); I10 Essential (primary) hypertension; E78.00 Pure hypercholesterolemia, unspecified; E03.9 Hypothyroidism, unspecified; G47.19 Other hypersomnia

== ENCOUNTER → 2024-10-22 11:52 | Outpatient (BNVA) | payer MEDICARE, SELFPAY | PROVIDERS: PCP Family Medicine; Visit Provider Family Medicine | DX: E11.9 Type 2 diabetes mellitus without complications (principal); I10 Essential (primary) hypertension; E78.00 Pure hypercholesterolemia, unspecified; E03.9 Hypothyroidism, unspecified; G47.19 Other hypersomnia | CPT/HCPCS: 83036; 99212 ==

== ENCOUNTER 2024-11-25 13:05 | Outpatient (AMB) | payer MEDICARE, SELFPAY ==
--- NOTE | 2024-11-25 13:24 | AM.OFFWIN_ITS ---
Intake Vital Signs 3 11/25/24 13:29 Height 5 ft 9 in Weight 205 lb BMI 30.3 BP 132/72 Blood Pressure Location Lt brachial Position Sitting Respiration 13 Pulse 70 Pulse Source Pulse Oximeter Temp 97.3 F Temp Source Temporal Artery Scan Pulse Oximetry (%) 97 Oxygen Delivery Method Room Air Intake Visit Reasons: Possible shingles Intake Note: Patient c/o left side upper back rash, painful and itching. Patient also c/o both arms rash and itchy. 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 Allergies No Known Allergies Allergy (Verified 11/25/24 13:36) Medication List - Last Reconciled 11/25/24 by Tawnya Malik, CHAPIN- atorvastatin 20 mg PO DAILY 90 days cholecalciferol (vitamin D3) 50 mcg PO DAILY 30 days glipizide ER 5 mg PO QAM 30 days levothyroxine 125 mcg PO DAILY 90 days lisinopril-hydrochlorothiazide 20-12.5 mg 1 tab PO QAM 90 days metformin 250 mg (1/2 x 500 mg) PO BID 90 days naproxen 500 mg PO BID PRN 30 days Do you need a note to return to daycare/school/sports/work: No HPI HPI Comments 2 History of Present Illness0 Details History of Present Illness - The patient is a 64-year-old male pres enting with suspected shingles. - Rash onset about 1 month ago on the ri ght shoulder, preceding sx of extreme itchiness and severe pain for a few weeks before development of rash. - Pain radiates to the underarm and ches t on the right side. - Denies fever or chills; feels tired. Review of Systems - Integumentary: Reports rash on the rig ht shoulder and chest, pain associated with the rash. - Musculoskeletal: Reports right arm libia n, difficulty moving the arm. - Neurological: Reports nerve pain. - Respiratory: Denies additional symptom s affecting lung function. Physical Exam Rash L shoulder blade area Discussion Notes I informed the patient of the diagnosis of herpes zoster, explained that it is a reactivation of the varicella-zoster virus, and discussed its contagiousness in this context. I emphasized the importance of medication adherence for symptom management and the potential for nerve pain relief. The treatment plan includes antiviral medication, Valacyclovir, dosed at 1000 mg every 8 hours for 7 days, to expedite rash resolution. Additionally, Gabapentin is recommended at 300 mg, taken up to three times daily to mitigate nerve pain, cautioning about potential drowsiness. [id number]-[id number] lidocaine patches are advised to help numb the skin and manage discomfort. Follow-up on medication effectiveness and symptom progression was also specified. Assessment and Plan 1. Herpes Zoster (Shingles) - Prescribe Valacyclovir 1000 mg every 8 hours for 7 days. - Prescribe Gabapentin 300 mg up to thre e times daily PRN pain. - Recommend [id number]-mjl-rhwnpau lidocaine p atches. Patient Instructions - Take Valacyclovir 1000 mg every 8 hour s for 7 days with food. - Take Gabapentin 300 mg up to 3 times a day if needed, but try at home first to see if it causes drowsiness. - Use lidocaine patches as needed for pa in, wear for 12 hours on, then off for 12 hours. - Keep rash covered and avoid contact wi th infants or individuals with weakened immune systems if the rash opens up. Consent Patient was informed and verbally consented to the use of an ambient scribe for clinic note documentation during this visit. FORMERLY [facility], [facility]1983 Surgical History History of left inguinal hernia repair Family History Father Dementia Mother Dementia Breast cancer Social History Housing: House Patient Tobacco Use Status: Never used Tobacco e-Cigarette/Vaping Use: Never Used Second Hand Smoke Exposure: No service: No Current occupational status: employed Current occupational exposures/hazards: No Cognitive needs: No Hearing needs: No Vision needs: No Physical Exam Vital Signs: Last Vital Signs Temp 97.3 F 11/25/24 13:29 Pulse 70 11/25/24 13:29 Resp 13 11/25/24 13:29 BP 132/72 11/25/24 13:29 Pulse Ox 97 11/25/24 13:29 Oxygen Delivery Method Room Air 11/25/24 13:29 BMI result Body Mass Index 30.3 Assessment & Plan Assessment & Plan (1) Shingles: Code(s): B02.9 - Zoster without complications Qualifiers: Herpes zoster complications: without complications Qualified Code(s): B 02.9 - Zoster without complications Plan . Medications: New 2 valacyclovir 1,000 mg PO Q8H 21 tabs 0RF 7 days gabapentin 300 mg PO TID PRN 30 caps 0RF pain Coding Level of Care Code Est Pt Level 4 (36079) Diagnoses Herpes zoster without complication B02.9 Herpes zoster complications: without complications
[2024-11-25 13:29] VITALS: BP 132/72; PULSE 70; RESP 13; TEMP 36.3; O2SAT 97; BMI 30.3
== END 2024-11-25 13:44 | disposition home or self-care (01) ==
LOC: HO.HMCFM 13:05
PROVIDERS: PCP Family Medicine; Visit Provider Nurse Practitioner Family
DX: B02.9 Zoster without complications (principal)

== ENCOUNTER → 2024-11-25 13:05 | Outpatient (BNVA) | payer MEDICARE, SELFPAY | PROVIDERS: PCP Family Medicine; Visit Provider Nurse Practitioner Family | DX: B02.9 Zoster without complications (principal) | CPT/HCPCS: 99212 ==

== ENCOUNTER 2024-12-30 11:38 | Outpatient (AMB) | payer MEDICARE, SELFPAY ==
--- NOTE | 2024-12-30 11:40 | MHC.PC.OV ---
Vital Signs 12/30/24 11:41 Height 5 ft 9 in Weight 208 lb 8 oz BMI 30.8 BP 138/80 Blood Pressure Location Rt brachial Position Sitting Respiration 16 Pulse 70 Pulse Source Pulse Oximeter Temp 97.5 F Temp Source Temporal Artery Scan Pulse Oximetry (%) 96 Oxygen Delivery Method Room Air Intake Visit Reasons: f/u diabetes, HTN, labs Accompanied by: Spouse Allergies No Known Allergies Allergy (Verified 12/30/24 11:49) Tobacco use date assessed: 12/30/24 Fall risk assessment: No Falls in past year Last assessed Fall Risk: 12/30/24 Dental Screening Dental Screen Date: 12/30/24 Did you have a dental visit in the last 12 months?: No Did you have a dental problem in the last 6 months where you did not have access to dental care?: No Was dental information given to patient?: Patient has dentist HPI f/u diabetes, HTN, labs HPI Details 64 y/o male presents to f/u diabetes, HTN, labs. A1c today 7.1%. He is on glipizide 5mg, metformin 500mg. BP today 138/80, 70p. He is on lisinopril-HCTZ 20-12.5mg daily. [facility] Surgical History History of left inguinal hernia repair Family History Father Dementia Mother Dementia Breast cancer Social History Housing: House Patient Tobacco Use Status: Never used Tobacco e-Cigarette/Vaping Use: Never Used Second Hand Smoke Exposure: No service: No Current occupational status: employed Current occupational exposures/hazards: No Cognitive needs: No Hearing needs: No Vision needs: No Questionnaire PHQ-9 Over the last 2 weeks, how often have you been bothered by any of the following problems? 1. Little interest or pleasure in doing things: several days 2. Feeling down, depressed, or hopeless: not at all 3. Trouble falling or staying asleep, or sleeping too much: several days 4. Feeling tired or having little energy: more than half the days 5. Poor appetite or overeating: not at all 6. Feeling bad about yourself - or that you are a failure or have let yourself or your family down: not at all 7. Trouble concentrating on things, such as reading the newspaper or watching television: not at all 8. Moving or speaking so slowly that other people could have noticed. Or the opposite - being so fidgety or restless that you have been moving around a lot more than usual: not at all 9. Thoughts that you would be better off or of hurting yourself in some way: not at all Total score: 4 Source: Developed by Drs. Alfonso Green, Zulay Brennan, Lobo Martinez and colleagues, with an educational tu from [employer]. Thrive Questionnaire Date Thrive assessed: 10/22/24 I am a: Patient What is your living situation today?: I have a steady place to live Within the past 12 months, did the food you bought not last and you didn't have the money to get more?: Never true Within the past 12 months, did you worry whether your food would run out before you got money to buy more?: Never true Do you have trouble paying for medicines?: No Do you have trouble getting transportation to medical appointments?: No Do you have trouble paying your heating and electricity bill?: No Do you have trouble taking care of your child, family member or friend?: No Do you have trouble with day-to-day activities such as bathing, preparing meals, shopping, managing finances, etc.?: No Are you currently unemployed and looking for a job?: No Are you interested in more education?: No Please select the resources that you would like help with: Paying for medicine Currently or been in a relationship where the following occur: No concerns reported THRIVE Score: 0 AUDIT C Alcohol Use Questionnaire (AUDIT-C) 1. How often do you have a drink containing alcohol?: Never 3. How often do you have six or more drinks on one occasion?: Never Total Score: 0 DARLENE-7 AMB Questionnaire DARLENE-7 Date DARLENE - 7 assessed: 12/30/24 Feeling nervous, anxious, or on edge: 1 = Several days Not being able to stop or control worryin = Several days Worrying too much about different things: 1 = Several days Trouble relaxin = Several days Being so restless that it is hard to sit still: 1 = Several days Becoming easily annoyed or irritable: 1 = Several days Feeling afraid as if something awful might happen: 0 = Not at all Total DARLENE-7 score (0-4 normal; 5-9 mild; 10-14 moderate; 15-21 severe): 6 Source: Developed by Drs. Alfonso Green, Zulay Brennan, Lobo Martinez and colleagues, with an educational tu from [employer]. Review of Systems Const Denies chills, Denies fatigue, Denies fever(s), Denies headache(s) and Denies weakness ENT Denies dizziness and Denies headache(s) Card Denies dyspnea Resp Denies cough, Denies dyspnea, Denies wheezing and Denies other (shortness of breath) Musc Denies numbness and Denies tingling Neuro Denies dizziness, Denies headache(s), Denies numbness, Denies tingling and Denies weakness Psych Denies anxiety and Denies depression Endo Denies fatigue Aller/Immun Denies wheezing Physical exam (Primary Care) Vital Signs: Last Vital Signs Temp 97.5 F 12/30/24 11:41 Pulse 70 12/30/24 11:41 Resp 16 12/30/24 11:41 BP 138/80 12/30/24 11:41 Pulse Ox 96 12/30/24 11:41 Oxygen Delivery Method Room Air 12/30/24 11:41 BMI result Body Mass Index 30.8 Tobacco/Smoking Status: Tobacco use Status Tobacco use date assessed 12/30/24 12/30/24 11:52 Patient Tobacco Use Status Never used Tobacco 12/30/24 11:52 e-Cigarette/Vaping Use Never Used 12/30/24 11:52 PHQ-9: PHQ-9 Score PHQ-9: Total score 4 12/30/24 12:08 Thrive Assessment: Date of Thrive Assessment Date Thrive assessed 10/22/24 12/30/24 11:52 Currently or been in a relationship where the following occur: No concerns reported Const General: well developed; No acute distress Nutritional Appearance: well nourished Orientation/consciousness: patient oriented x3 HENMT Head: Yes normocephalic and Yes atraumatic Eyes General: appearance normal, both eyes and all related structures Pupils: Equal, round and reactive pupils present EOM: EOMs intact bilaterally Resp Effort & Inspection: normal respiratory effort Auscultation: clear to auscultation bilaterally Cardio Rate: regular rate Rhythm: regular rhythm Heart sounds: S1 normal heart sound present, S2 normal heart sound present, no gallops, no murmurs and no rubs Neuro General: patient oriented x3 and gait normal Cranial nerves: Yes Equal, round and reactive pupils present Psych Affect: normal affect Results AMB Hemoglobin A1c AMB Hemoglobin A1c 7.1 % Last Edit by Mari Urbina CMA on 12/30/24 11:59 Results Reviewed Results Reviewed: Laboratory Last Values Hgb A1c (Clinic) 7.1 % (4.0-6.0) H 12/30/24 11:52 Coding Level of Care Code Est Pt Level 4 (94446) Diagnoses Diabetes mellitus E11.9 Essential hypertension I10 Immunization counseling Z71.85 Hypothyroidism E03.9 Assessment & Plan Assessment & Plan (1) Diabetes mellitus: Code(s): E11.9 - Type 2 diabetes mellitus without complications Category: Medical Plan: A1c 7.1% is a little above goal of less than 7% Will increase metformin to 750 mg total daily dose (500mg a.m. and 250mg PM) (2) Essential hypertension: Code(s): I10 - Essential (primary) hypertension Category: Medical Plan: Blood pressure is controlled. Goal < 140/90 Continue current medication regimen Encouraged exercise (3) Immunization counseling: Code(s): Z71.85 - Encounter for immunization safety counseling Category: Medical Plan: Recent shingles of break which is now resolved Advised shingles shot (4) Hypothyroidism: Code(s): E03.9 - Hypothyroidism, unspecified Category: Medical Plan: Patient is taking levothyroxine as prescribed. Due to recheck thyroid hormone levels which are ordered. Orders: Orders AMB Hemoglobin A1c Today Z13.9 - Encounter for screening, unspecified
[2024-12-30 11:41] VITALS: BP 138/80; PULSE 70; RESP 16; TEMP 36.4; O2SAT 96; BMI 30.8
== END 2024-12-30 12:18 | disposition home or self-care (01) ==
LOC: HO.HMCFM 11:39
PROVIDERS: PCP Family Medicine; Visit Provider Family Medicine
DX: E11.9 Type 2 diabetes mellitus without complications (principal); I10 Essential (primary) hypertension; Z71.85 Encounter for immunization safety counseling; E03.9 Hypothyroidism, unspecified; Z13.9 Encounter for screening, unspecified

== ENCOUNTER → 2024-12-30 11:38 | Outpatient (BNVA) | payer MEDICARE, SELFPAY | PROVIDERS: PCP Family Medicine; Visit Provider Family Medicine | DX: E11.9 Type 2 diabetes mellitus without complications (principal); E03.9 Hypothyroidism, unspecified; I10 Essential (primary) hypertension; Z71.85 Encounter for immunization safety counseling | CPT/HCPCS: 83036; 99212 ==

== ENCOUNTER 2025-01-07 09:08 | Outpatient (REF) | payer MEDICARE, SELFPAY ==
[2025-01-07 10:52] LABS: Appearance Urine Clear; Glucose Urine UA Negative (Negative); PH 5.5 (5.0-9.0); Specific Gravity - Urine >= 1.030 (1.005-1.025)
[2025-01-07 11:13] LABS: Microalbum/Creatinine Ratio Ur 4.1 ug/mg cr (<30)
[2025-01-07 11:28] LABS: Alanine Aminotransferase 27 U/L (0-40); Albumin Level 4.3 g/dL (3.5-5.0); Alkaline Phosphatase 84 U/L (39-117); Anion Gap 14 (12-20); Aspartate Amino Transferase 24 U/L (5-37); Blood Urea Nitrogen 17 mg/dL (9-16); Calcium 9.1 mg/dL (8.4-10.2); Carbon Dioxide 29 mmol/L (22-29); Chloride 104 mmol/L (96-108); Cholesterol 141 mg/dL (<200); Estimated Glomerular Filt Rate > 60; HDL Cholesterol 47 mg/dL (>40); Potassium 4.5 mmol/L (3.3-5.1); Sodium 142 mmol/L (135-145); Total Protein 7.2 g/dL (6.5-8.0); Triglycerides 74 mg/dL (<150)
[2025-01-07 11:49] LABS: Free T4 (Free Thyroxine) 1.15 ng/dL (0.71-1.85); Thyroid Stimulating Hormone 0.86 uIU/mL (0.32-4.0)
== END 2025-01-07 09:09 | disposition home or self-care (01) ==
LOC: HO.LAB 09:08
PROVIDERS: PCP Family Medicine; Visit Provider Family Medicine
DX: Z00.00 Encounter for general adult medical examination without abnormal findings (principal); Z12.5 Encounter for screening for malignant neoplasm of prostate; I10 Essential (primary) hypertension; E03.9 Hypothyroidism, unspecified; E55.9 Vitamin D deficiency, unspecified; R79.89 Other specified abnormal findings of blood chemistry
CPT/HCPCS: 36415; 80053; 80061; 81003; 82043; 82306; 82570; 84153; 84439; 84443; 84480

== ENCOUNTER 2025-04-02 11:32 | Outpatient (AMB) | payer MEDICARE, SELFPAY ==
--- NOTE | 2025-04-02 11:47 | A.OFFPC_ITS ---
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 Allergies No Known Allergies Allergy (Verified 04/02/25 11:52) Medication List - Last Reconciled 04/02/25 by Blair Espinosa MD atorvastatin 10 mg PO DAILY 90 days cholecalciferol (vitamin D3) 50 mcg PO DAILY 30 days glipizide ER 5 mg PO QAM 30 days levothyroxine 125 mcg PO DAILY 90 days lisinopril-hydrochlorothiazide 20-12.5 mg 1 tab PO QAM 90 days metformin 500 mg PO DAILY 90 days naproxen 500 mg PO BID PRN 30 days sertraline 50 mg PO DAILY 90 days valacyclovir 1,000 mg PO Q8H 7 days Tobacco use date assessed: 12/30/24 Dental Screening Dental Screen Date: 12/30/24 HPI f/u diabetes, HTN HPI Details 64 y/o male presents to f/u diabetes, HT N. Prior A1c 12/30/24 7.1%. A1c today 04/02/25 6.8%. He notes he is only on metformin 250mg once a day. BP today 130/72, 78p. He is on lisinopril-HCTZ 20-12.5mg daily. Recent labs drawn 01/07/25. Reviewed labs with pt. Triglycerides 74. TC 141. LDL 80. HDL 47. He is on artovastatin 20mg daily but he notes he has not taken his statin meds in at least a month. PSA 0.93. Vitamin D 43.3. Reports anxiety, increased anger/irritability. [facility] Surgical History History of left inguinal hernia repair Family History Father Dementia Mother Dementia Breast cancer Social History Housing: House Patient Tobacco Use Status: Never used Tobacco e-Cigarette/Vaping Use: Never Used Second Hand Smoke Exposure: No service: No Current occupational status: employed Current occupational exposures/hazards: No Cognitive needs: No Hearing needs: No Vision needs: No Questionnaire Thrive Questionnaire Date Thrive assessed: 10/22/24 I am a: Patient What is your living situation today?: I have a steady place to live Within the past 12 months, did the food you bought not last and you didn't have the money to get more?: Never true Within the past 12 months, did you worry whether your food would run out before you got money to buy more?: Never true Do you have trouble paying for medicines?: No Do you have trouble getting transportation to medical appointments?: No Do you have trouble paying your heating and electricity bill?: No Do you have trouble taking care of your child, family member or friend?: No Do you have trouble with day-to-day activities such as bathing, preparing meals, shopping, managing finances, etc.?: No Are you currently unemployed and looking for a job?: No Are you interested in more education?: No Please select the resources that you would like help with: Paying for medicine Currently or been in a relationship where the following occur: No concerns reported THRIVE Score: 0 DARLENE-7 AMB Questionnaire DARLENE-7 Date DARLENE - 7 assessed: 12/30/24 Source: Developed by Drs. Alfonso Green, Zulay Brennan, Lobo Martinez and colleagues, with an educational tu from [employer] Review of Systems Const Denies chills, Denies fatigue, Denies fever(s), Denies headache(s) and Denies weakness ENT Denies dizziness and Denies headache(s) Card Denies dyspnea Resp Denies cough, Denies dyspnea, Denies wheezing and Denies other (shortness of breath) Musc Denies numbness and Denies tingling Neuro Denies dizziness, Denies headache(s), Denies numbness, Denies tingling and Denies weakness Psych Reports anxiety and Denies depression Endo Denies fatigue Aller/Immun Denies wheezing Physical exam (Primary Care) Vital Signs: Last Vital Signs Temp 98.5 F 04/02/25 11:55 Pulse 78 04/02/25 11:55 Resp 16 04/02/25 11:55 BP 130/72 04/02/25 11:55 Pulse Ox 96 04/02/25 11:55 Oxygen Delivery Method Room Air 04/02/25 11:55 BMI result Body Mass Index 30.6 Tobacco/Smoking Status: Tobacco use Status Tobacco use date assessed 12/30/24 04/02/25 11:48 Patient Tobacco Use Status Never used Tobacco 04/02/25 11:48 e-Cigarette/Vaping Use Never Used 04/02/25 11:48 Thrive Assessment: Date of Thrive Assessment Date Thrive assessed 10/22/24 04/02/25 11:48 Currently or been in a relationship where the following occur: No concerns reported Const General: well developed; No acute distress Nutritional Appearance: well nourished Orientation/consciousness: patient oriented x3 HENMT Head: Yes normocephalic and Yes atraumatic Eyes General: appearance normal, both eyes and all related structures Pupils: Equal, round and reactive pupils present EOM: EOMs intact bilaterally Resp Effort & Inspection: normal respiratory effort Neuro General: patient oriented x3 and gait normal Cranial nerves: Yes Equal, round and reactive pupils present Psych Affect: normal affect Coding Level of Care Code Est Pt Level 5 (62855) Diagnoses Diabetes mellitus E11.9 Essential hypertension I10 Hypercholesterolemia E78.00 Anxiety F41.9 Irritability and anger R45.4 Assessment & Plan Assessment & Plan (1) Diabetes mellitus: Code(s): E11.9 - Type 2 diabetes mellitus without complications Category: Medical Plan: A1c improved to 6.8%. Goal is less than 7.0%. He says he has been taking metformin 500 mg once daily He can continue this dose. Continue diabetic diet (2) Essential hypertension: Code(s): I10 - Essential (primary) hypertension Category: Medical Plan: Blood pressure is controlled. Goal is less than 140/90 Continue current medication (3) Hypercholesterolemia: Code(s): E78.00 - Pure hypercholesterolemia, unspecified Category: Medical Plan: LDL cholesterol is less than 100. Patient says he has not been taking statin. Given patient's comorbidities of hypertension and diabetes, recommended a low dose of statin medication. Will just atorvastatin to 10 mg daily (4) Anxiety: Code(s): F41.9 - Anxiety disorder, unspecified Category: Medical (5) Irritability and anger: Code(s): R45.4 - Irritability and anger Category: Medical Plan Patient notes worsening irritability anger/anxiety Will make a referral to a therapist. Trial sertraline He will return in about 4-6 weeks to follow-up on irritability/anger and sertraline therapy. Also referred him to a therapist in we can ensure that has an appointment. Will discuss repeating some lab work at that time including thyroid hormone levels. Orders: Referrals Nurse Navigator Referral F41.9 - Anxiety disorder, unspecified, R45.4 - Irritability and anger Medications: New sertraline 50 mg PO DAILY 90 tabs 1RF 90 days Changed From atorvastatin 20 mg PO DAILY 90 days 90 tabs 2RF To atorvastatin 10 mg PO DAILY 90 tabs 2RF 90 days From metformin 250 mg (1/2 x 500 mg) PO BID 90 days 90 tabs 3RF To metformin 500 mg PO DAILY 90 tabs 3RF 90 days Refilled levothyroxine 125 mcg PO DAILY 90 tabs 1RF 90 days lisinopril-hydrochlorothiazide 20-12.5 mg 1 tab PO QAM 90 tabs 3RF 90 days glipizide ER 5 mg PO QAM 30 tabs 2RF 30 days
[2025-04-02 11:55] VITALS: BP 130/72; PULSE 78; RESP 16; TEMP 36.9; O2SAT 96; BMI 30.6
== END 2025-04-02 12:29 | disposition home or self-care (01) ==
LOC: HO.HMCFM 11:33
PROVIDERS: PCP Family Medicine; Visit Provider Family Medicine
DX: E11.9 Type 2 diabetes mellitus without complications (principal)

== ENCOUNTER → 2025-04-02 11:32 | Outpatient (BNVA) | payer MEDICARE, SELFPAY | PROVIDERS: PCP Family Medicine; Visit Provider Family Medicine | DX: E11.9 Type 2 diabetes mellitus without complications (principal); E78.00 Pure hypercholesterolemia, unspecified; F41.9 Anxiety disorder, unspecified; R45.4 Irritability and anger; I10 Essential (primary) hypertension | CPT/HCPCS: 83036; 99212 ==

== ENCOUNTER 2025-05-28 13:59 | Outpatient (AMB) | payer MEDICARE, SELFPAY ==
--- NOTE | 2025-05-28 14:08 | MHC.PC.OV ---
Vital Signs 05/28/25 14:12 Height 5 ft 9 in Weight 199 lb BMI 29.4 BP 122/76 Blood Pressure Location Lt brachial Position Sitting Pulse 71 Pulse Source Pulse Oximeter Pulse Oximetry (%) 99 Handedness Right Intake Visit Reasons: f/u anxiety, chronic conditions (RB 05/05) Intake Note: Calvin is a 65 year old male who presents today for a follow up visit. Allergies No Known Allergies Allergy (Verified 05/28/25 14:12) Medication List - Last Reconciled 05/28/25 by Blair Espinosa MD atorvastatin 10 mg PO DAILY 90 days cholecalciferol (vitamin D3) 50 mcg PO DAILY 30 days glipizide ER 5 mg PO QAM 30 days levothyroxine 125 mcg PO DAILY 90 days lisinopril-hydrochlorothiazide 20-12.5 mg 1 tab PO QAM 90 days metformin 500 mg PO DAILY 90 days naproxen 500 mg PO BID PRN 30 days sertraline 50 mg PO DAILY 90 days valacyclovir 1,000 mg PO Q8H 7 days Tobacco use date assessed: 12/30/24 Dental Screening Dental Screen Date: 12/30/24 HPI f/u anxiety, chronic conditions (RB 05/05) HPI Details 65 y/o male presents to f/u anxiety, chronic conditions. Blood pressure today 122/76, 71p. He is on lisinopril-HCTZ 20-12.5mg. Pt notes he has not been taking his blood pressure medications except for last night. Reports episodes of mental status change after a severe headache. Does have a tremor. Reports chest pain. Notes he has started taking sertraline again for his mood. [facility] Surgical History History of left inguinal hernia repair Family History Father Dementia Mother Dementia Breast cancer Social History Housing: House Patient Tobacco Use Status: Never used Tobacco e-Cigarette/Vaping Use: Never Used Second Hand Smoke Exposure: No service: No Current occupational status: employed Current occupational exposures/hazards: No Cognitive needs: No Hearing needs: No Vision needs: No Questionnaire Thrive Questionnaire Date Thrive assessed: 10/22/24 I am a: Patient What is your living situation today?: I have a steady place to live Within the past 12 months, did the food you bought not last and you didn't have the money to get more?: Never true Within the past 12 months, did you worry whether your food would run out before you got money to buy more?: Never true Do you have trouble paying for medicines?: No Do you have trouble getting transportation to medical appointments?: No Do you have trouble paying your heating and electricity bill?: No Do you have trouble taking care of your child, family member or friend?: No Do you have trouble with day-to-day activities such as bathing, preparing meals, shopping, managing finances, etc.?: No Are you currently unemployed and looking for a job?: No Are you interested in more education?: No Currently or been in a relationship where the following occur: No concerns reported THRIVE Score: 0 DARLENE-7 AMB Questionnaire DARLENE-7 Date DARLENE - 7 assessed: 12/30/24 Source: Developed by Drs. Alfonso Green, Zulay Brennan, Lobo Martinez and colleagues, with an educational tu from [employer]. Review of Systems Const Denies chills, Denies fatigue, Denies fever(s), Denies headache(s) and Denies weakness ENT Denies dizziness and Denies headache(s) Card Denies dyspnea Resp Denies cough, Denies dyspnea, Denies wheezing and Denies other (shortness of breath) Musc Denies numbness and Denies tingling Neuro Denies dizziness, Denies headache(s), Denies numbness, Denies tingling, Reports tremor(s) and Denies weakness Psych Denies anxiety and Denies depression Endo Denies fatigue Aller/Immun Denies wheezing Physical exam (Primary Care) Vital Signs: Last Vital Signs Pulse 71 05/28/25 14:12 BP 122/76 05/28/25 14:12 Pulse Ox 99 05/28/25 14:12 BMI result Body Mass Index 29.4 Tobacco/Smoking Status: Tobacco use Status Tobacco use date assessed 12/30/24 05/28/25 14:09 Patient Tobacco Use Status Never used Tobacco 05/28/25 14:09 e-Cigarette/Vaping Use Never Used 05/28/25 14:09 Thrive Assessment: Date of Thrive Assessment Date Thrive assessed 10/22/24 05/28/25 14:09 Currently or been in a relationship where the following occur: No concerns reported Const General: well developed; No acute distress Nutritional Appearance: well nourished Orientation/consciousness: patient oriented x3 HENMT Head: Yes normocephalic and Yes atraumatic Eyes General: appearance normal, both eyes and all related structures Pupils: Equal, round and reactive pupils present EOM: EOMs intact bilaterally Resp Effort & Inspection: normal respiratory effort Auscultation: clear to auscultation bilaterally Cardio Rate: regular rate Rhythm: regular rhythm Heart sounds: S1 normal heart sound present, S2 normal heart sound present, no gallops, no murmurs and no rubs Neuro General: patient oriented x3 and gait normal Cranial nerves: Yes CN's II-XII intact bilaterally and Yes Equal, round and reactive pupils present Psych Affect: normal affect Coding Level of Care Code Est Pt Level 5 (34400) Diagnoses Essential hypertension I10 Anxiety F41.9 Chest pain R07.9 Altered mental status R41.82 Tremor R25.1 Assessment & Plan Assessment & Plan (1) Essential hypertension: Code(s): I10 - Essential (primary) hypertension Category: Medical (2) Anxiety: Code(s): F41.9 - Anxiety disorder, unspecified Category: Medical (3) Chest pain: Code(s): R07.9 - Chest pain, unspecified Category: Medical (4) Altered mental status: Code(s): R41.82 - Altered mental status, unspecified Category: Medical (5) Tremor: Code(s): R25.1 - Tremor, unspecified Category: Medical Plan Patient presents with numerous complaints. He notes that he has been getting intermittent chest pain. Pain can last up to an hour. Can be quite severe. He denies that it occurs while exerting himself but does acknowledge that pain may be associated in that it may come afterwards. Electrocardiogram shows normal sinus rhythm, normal axis, no hypertrophy no ST-T-wave changes. Will check echocardiogram. May need stress test but patient has other complaints which preclude exertion at this time. Check chest x-ray Check labs including thyroid and troponin Patient has complaint of episode of severe headache and neck pain he describes as so severe he thought it would kill him. Had severe spasm of left posterolateral neck and then follow-up this stopped at once. Subsequently he notes that he had altered mental status for multiple days. He also notes fluid collection behind left ear at attachment site of neck muscles. Unclear cause but may represent a vertebral-basilar dissection/injury or TIA/stroke. Checking MRI of head brain and MRA head and neck Checking labs Referring him to Neurology He will return after MRI MRA imaging to review and ensure he has an appointment with Neurology. Will also follow-up on chest x-ray and echocardiogram as well as lab work Blood pressure appears controlled today. He notes that he had stopped his lisinopril hydrochlorothiazide after he had the above episodes but has resumed it again as of last night. Continue lisinopril hydrochlorothiazide Continue levothyroxine Orders: Orders AMB EKG-In Office 05/28/25 R07.9 - Chest pain, unspecified XR chest 2V 05/28/25 R07.9 - Chest pain, unspecified Complete Blood Count Auto Diff 05/28/25 R07.9 - Chest pain, unspecified, Z00.00 - Encounter for general adult medical examination without abnormal findings Magnesium 05/28/25 R07.9 - Chest pain, unspecified Free T4 (Free Thyroxine) 05/28/25 E03.9 - Hypothyroidism, unspecified, R07.9 - Chest pain, unspecified Triiodothyronine T3 Total 05/28/25 E03.9 - Hypothyroidism, unspecified, R07.9 - Chest pain, unspecified Thyroid Stimulating Hormone 05/28/25 E03.9 - Hypothyroidism, unspecified, R07.9 - Chest pain, unspecified Troponin-I High Sensitivity 05/28/25 R07.9 - Chest pain, unspecified D Dimer High Sensitivity 05/28/25 R07.9 - Chest pain, unspecified Erythrocyte Sedimentation Rate 05/28/25 R41.82 - Altered mental status, unspecified MR angio head wo/w con 05/28/25 M54.2 - Cervicalgia, R41.82 - Altered mental status, unspecified, R51.9 - Headache, unspecified MR head/brain wo con 05/28/25 R25.1 - Tremor, unspecified, R41.82 - Altered mental status, unspecified, R51.9 - Headache, unspecified Comprehensive Met. Panel 05/28/25 R07.9 - Chest pain, unspecified Hemoglobin A1c 05/28/25 R41.82 - Altered mental status, unspecified, R73.01 - Impaired fasting glucose Referrals Neurology Referral R25.1 - Tremor, unspecified, R41.82 - Altered mental status, unspecified, R51.9 - Headache, unspecified
[2025-05-28 14:12] VITALS: BP 122/76; PULSE 71; O2SAT 99; BMI 29.4
== END 2025-05-28 15:20 | disposition home or self-care (01) ==
LOC: HO.HMCFM 13:59
PROVIDERS: PCP Family Medicine; Visit Provider Family Medicine
DX: I10 Essential (primary) hypertension (principal); F41.9 Anxiety disorder, unspecified; R07.9 Chest pain, unspecified; R41.82 Altered mental status, unspecified; R25.1 Tremor, unspecified

== ENCOUNTER → 2025-05-28 13:59 | Outpatient (BNVA) | payer MEDICARE, SELFPAY | PROVIDERS: PCP Family Medicine; Visit Provider Family Medicine | DX: F41.9 Anxiety disorder, unspecified (principal); I10 Essential (primary) hypertension; R07.9 Chest pain, unspecified; R41.82 Altered mental status, unspecified; R25.1 Tremor, unspecified; R51.9 Headache, unspecified; Z00.00 Encounter for general adult medical examination without abnormal findings; Z79.899 Other long term (current) drug therapy; Z79.890 Hormone replacement therapy | CPT/HCPCS: 99212 ==